=== PATIENT | male | born 2000 | race Two or more races ===

== ENCOUNTER 2023-05-19 14:54 | Emergency (ER) | payer OTHER ==
[2023-05-19] MEDS ORDERED: KETOROLAC TROMETHAMINE 15 MG/ML VIAL IM ONE ×2 (15:02→15:25)
[2023-05-19] MEDS ORDERED: diazePAM 5 MG TABLET PO ONE (15:25)
[2023-05-19 15:29] VITALS: TEMP 99.2; BMI 26.6
[2023-05-19] MEDS ORDERED: diazePAM 5 MG TABLET ONE (15:44)
[2023-05-19] MEDS ORDERED: KETAMINE HCL 200 MG/20 ML VIAL IVPUSH ONE (16:28)
[2023-05-19] MEDS ORDERED: ONDANSETRON 4 MG/2 ML VIAL IVPUSH ONE (16:29)
[2023-05-19 18:02] VITALS: BP 135/83; PULSE 105; RESP 16
== END 2023-05-19 18:15 | disposition home or self-care (01) ==
LOC: FER 14:54
PROC: 0RSKXZZ Reposition Left Shoulder Joint, External Approach (ICD-10-PCS; principal; 2023-05-19)
PROC: 3E033GC Introduction of Other Therapeutic Substance into Peripheral Vein, Percutaneous Approach (ICD-10-PCS; 2023-05-19)
PROC: 3E0233Z Introduction of Anti-inflammatory into Muscle, Percutaneous Approach (ICD-10-PCS; 2023-05-19)
PROC: 3E0233Z Introduction of Anti-inflammatory into Muscle, Percutaneous Approach (ICD-10-PCS; 2023-05-19)
DX: S43.005A Unspecified dislocation of left shoulder joint, initial encounter (principal); M25.512 Pain in left shoulder; W17.89XA Other fall from one level to another, initial encounter; Y93.H2 Activity, gardening and landscaping; Y99.0 Civilian activity done for income or pay
CPT/HCPCS: 73030-TC-LT-FY; 73070-TC-LT-FY; 99284-25